=== PATIENT | female | born 1985 | race Caucasian/White ===

== ENCOUNTER 2018-08-15 06:57 | Day surgery (SDC) | payer OTHER ==
[~2018-08-15 06:57] MED LIST: Amoxicillin500 MG PO; BENZ100A PO; CEPH500 PO; GUAI600T33 PO; IBUP600 PO; LEVSOD125 PO; ONDA4ODT MM; THYROID MED; Ultram50 MG PO
== END 2018-08-15 23:08 | disposition home or self-care (01) ==
LOC: MOI US 06:57
DX: D24.2 Benign neoplasm of left breast (principal); R92.8 Other abnormal and inconclusive findings on diagnostic imaging of breast
CPT/HCPCS: 19083; 77065; 88305; A4648; G0279

== ENCOUNTER 2018-09-18 05:26 | Emergency (ER) | payer OTHER ==
[~2018-09-18] VITALS: Ht 160 cm; Wt 49.9 kg
[2018-09-18] MEDS ORDERED: LEVSOD125 PO (06:08)
[2018-09-18] MEDS ORDERED: VENL25 PO (06:08)
== END 2018-09-18 06:48 | disposition home or self-care (01) ==
LOC: ER 05:26
DX: T78.40XA Allergy, unspecified, initial encounter (principal); Z88.5 Allergy status to narcotic agent; Z79.899 Other long term (current) drug therapy
CPT/HCPCS: 99282

== ENCOUNTER → 2019-04-07 | Outpatient (CLI) | payer OTHER ==
[~2019-04-07] MED LIST changes: +VENL25 PO
== END ==
LOC: LAB 11:15 → LAB SHORT 11:15
PROVIDERS: Nurse Practitioner Family
DX: Z01.419 Encounter for gynecological examination (general) (routine) without abnormal findings (principal)
CPT/HCPCS: G0145

== ENCOUNTER → 2020-01-07 | Outpatient (CLI) | payer OTHER ==
[2020-01-08 16:09] LABS: CORNONAVIRUS (COVID19) CSH-NRL Negative (Negative)
== END ==
LOC: LAB EV 10:53 → LAB SHORT 10:53
PROVIDERS: Physician Assistant
DX: J06.9 Acute upper respiratory infection, unspecified (principal); Z20.828 Contact with and (suspected) exposure to other viral communicable diseases
CPT/HCPCS: 87081; U0003

== ENCOUNTER → 2020-03-28 | Outpatient (CLI) | payer OTHER ==
[2020-03-29 10:23] LABS: Candida species (DNA Probe) Negative (NEGATIVE); G. vaginalis (DNA Probe) Positive (NEGATIVE); T. vaginalis (DNA Probe) Negative (NEGATIVE)
== END ==
LOC: LAB SHORT 15:30 → LAB EV 15:30
PROVIDERS: Nurse Practitioner Family
DX: L29.3 Anogenital pruritus, unspecified (principal); R87.89 Other abnormal findings in specimens from female genital organs
CPT/HCPCS: 87480; 87510; 87660

== ENCOUNTER → 2020-10-28 | Outpatient (CLI) | payer OTHER ==
[2020-10-29 09:15] LABS: Candida species (DNA Probe) Negative (NEGATIVE); G. vaginalis (DNA Probe) Positive (NEGATIVE); T. vaginalis (DNA Probe) Negative (NEGATIVE)
== END | disposition home or self-care (01) ==
LOC: LAB EV 14:27 → LAB SHORT 14:27 → LAB 14:27
PROVIDERS: Nurse Practitioner Family
DX: N89.8 Other specified noninflammatory disorders of vagina (principal)
CPT/HCPCS: 87480; 87510; 87660

== ENCOUNTER → 2020-12-29 | Outpatient (CLI) | payer OTHER ==
[2020-12-30 11:01] LABS: G. vaginalis (DNA Probe) Negative (NEGATIVE); T. vaginalis (DNA Probe) Negative (NEGATIVE)
[2020-12-30 11:02] LABS: Candida species (DNA Probe) Negative (NEGATIVE)
[2021-01-01 04:10] LABS: CHLAMYDIA TRACHOMATIS, NAA Negative (Negative)
== END ==
LOC: LAB SHORT 17:37 → LAB 17:37
PROVIDERS: Nurse Practitioner Family
DX: N76.0 Acute vaginitis (principal); Z88.5 Allergy status to narcotic agent
CPT/HCPCS: 87480; 87491; 87510; 87591; 87660

== ENCOUNTER 2021-04-12 20:10 | Emergency (ER) | payer BC ==
[~2021-04-12] VITALS: Ht 160 cm; Wt 68.0 kg
[2021-04-13 00:31] LABS: Source, Urine Clean Catch
[2021-04-13 00:39] LABS: BASOPHILS ABSOLUTE AUTO 0.06 K/mm3 (0.00-0.23); BASOPHILS PERCENT AUTO 1 % (0-2); EOSINOPHILS PERCENT AUTO 6 % (0-6); Hematocrit 35.8 % (33.0-51.0); Hemoglobin 11.8 g/dL (11.5-16.0); IMMATURE GRAN ABSOLUTE AUTO 0.01 K/mm3 (0.00-0.10); IMMATURE GRAN PERCENT AUTO 0 % (0-1); LYMPHOCYTES PERCENT AUTO 35 % (21-46); MONOCYTES ABSOLUTE AUTO 0.48 K/mm3 (0.16-1.47); MONOCYTES PERCENT AUTO 9 % (4-13); Mean Corpuscular HGB 29.3 pg (26.0-34.0); Mean Corpuscular Volume 89 fL (80-100); Mean Platelet Volume 9.8 fL (9.1-12.4); NEUTROPHILS ABSOLUTE AUTO 2.64 K/mm3 (1.96-9.15); NEUTROPHILS PERCENT AUTO 49 % (41-73); Platelet Count 232 K/mm3 (150-400); RDW Coefficient Variation 12.5 % (11.7-14.2); RDW Standard Deviation 40.9 fL (35.1-46.3); Red Blood Cell Count 4.03 M/mm3 (3.80-5.20); White Blood Cell Count 5.39 K/mm3 (4.00-11.30)
[2021-04-13 01:06] LABS: Alanine Aminotransfer (ALT/SGP 23 U/L (12-78); Albumin, Blood 3.8 g/dL (3.4-5.0); Alk Phos 72 U/L (50-136); Anion Gap 5 mmol/L (6-16); Aspartate Aminotrans (AST/SGOT 18 U/L (12-37); Beta HCG, Quantitative, Serum 66 mIU/mL (0-3); Bilirubin, Total 0.2 mg/dL (0.1-1.0); Blood Urea Nitrogen 16 mg/dL (8-24); Bun/Creatinine Ratio 28.6 (12.0-20.0); CO2, Blood 29 mmol/L (21-32); Calcium, Blood 9.2 mg/dL (8.5-10.1); Chloride, Blood 105 mmol/L (98-108); Creatinine, Blood 0.56 mg/dL (0.40-1.00); Globulin, Blood 3.8 g/dL (2.2-4.0); Glomerular Filtration Rate >60 (60-); Glucose, Blood 88 mg/dL (70-99); Potassium, Blood 3.7 mmol/L (3.5-5.5); Sodium, Blood 139 mmol/L (136-145); Total Protein, Blood 7.6 g/dL (6.4-8.2)
[2021-04-13 01:24] LABS: Appearance, Urine Clear (Clear); Bilirubin, Urine Neg (Neg); Blood, Urine Neg (Neg); Color, Urine Yellow (P-Yellow); Glucose Qualitative, Urine Neg (Neg); Ketones, Urine Neg (Neg); Leukocyte Esterase, Urine Neg (Neg); Nitrite, Urine Neg (Neg); Protein, Urine Neg (Neg); Urobilinogen, Urine NORM (Normal)
== END 2021-04-13 01:56 | disposition home or self-care (01) ==
LOC: ER 20:10
PROVIDERS: Physician Assistant
DX: O99.891 Other specified diseases and conditions complicating pregnancy (principal); M54.50 Low back pain, unspecified; Z3A.01 Less than 8 weeks gestation of pregnancy; Z88.5 Allergy status to narcotic agent; E03.9 Hypothyroidism, unspecified; Z79.899 Other long term (current) drug therapy
CPT/HCPCS: 76770; 76801; 76817; 80053; 81003; 84702; 85025; 86900; 86901; 96374; 99284-25; A9270; J2550

== ENCOUNTER 2021-10-24 12:50 | Day surgery (SDC) | payer OTHER ==
[~2021-10-24] VITALS: Ht 160 cm; Wt 72.4 kg
[2021-10-24] MEDS ORDERED: ESCI10 PO (13:33)
[2021-10-24] MEDS ORDERED: BUSPIRONE HCL7.5 M1 PO (13:33)
--- NOTE | 2021-10-24 16:15 | NUR ---
10/24/21 7945 Michell Javier PT AT BEDSIDE DURING RECOVERY AND DISCHARGE INSTRUCTIONS. PT GLUTEN FREE SO PROVIDED: STRING CHEESE, APPLE SAUCE AND APPLE JUICE. ONLY PAIN IS HEADACHE SHE STATES. POSSIBLE CAFFIENE WITHDRAWL SYMPT D/T NOT HAVING HER COFFEE TODAY. MELISSA AMIN TEA PROVIDED FOR HER. RAHRN
--- NOTE | 2021-10-30 12:04 | NUR ---
10/30/21 1204 Brent Workman SURGEON BROUGHT AND USED HER OWN ULTRASOUND. BRENT WORKMAN RN
== END 2021-10-24 16:30 | disposition home or self-care (01) ==
LOC: ORSCSDS 12:50
PROVIDERS: Obstetrics & Gynecology
PROC: 10D17ZZ Extraction of Products of Conception, Retained, Via Natural or Artificial Opening (ICD-10-PCS; principal; 2021-10-24 14:30)
DX: O02.89 Other abnormal products of conception (principal); J45.909 Unspecified asthma, uncomplicated; E03.9 Hypothyroidism, unspecified; F41.8 Other specified anxiety disorders; Z79.899 Other long term (current) drug therapy
CPT/HCPCS: 88305; J1100; J1885; J2210; J2250; J2405; J2704; J3010; J7060; J7120

== ENCOUNTER → 2022-03-06 | Outpatient (CLI) | payer OTHER ==
[~2022-03-06] MED LIST changes: +BUSPIRONE HCL7.5 M1 PO; +ESCI10 PO
== END | disposition home or self-care (01) ==
LOC: LAB SHORT 10:04 → LAB 10:04
DX: Z20.9 Contact with and (suspected) exposure to unspecified communicable disease (principal)
CPT/HCPCS: 87807

== ENCOUNTER 2022-04-21 10:04 | Emergency (ER) | payer OTHER ==
[~2022-04-21] VITALS: Ht 162.6 cm; Wt 63.5 kg
[2022-04-21 11:29] LABS: BASOPHILS ABSOLUTE AUTO 0.06 K/mm3 (0.00-0.23); BASOPHILS PERCENT AUTO 1 % (0-2); EOSINOPHILS ABSOLUTE AUTO 0.16 K/mm3 (0.00-0.68); EOSINOPHILS PERCENT AUTO 4 % (0-6); Hematocrit 40.5 % (33.0-51.0); Hemoglobin 14.2 g/dL (11.5-16.0); IMMATURE GRAN PERCENT AUTO 0 % (0-1); LYMPHOCYTES ABSOLUTE AUTO 1.47 K/mm3 (0.84-5.20); LYMPHOCYTES PERCENT AUTO 33 % (21-46); MONOCYTES PERCENT AUTO 9 % (4-13); Mean Corpuscular HGB 32.4 pg (26.0-34.0); Mean Corpuscular HGB Conc 35.1 g/dL (31.5-36.5); Mean Corpuscular Volume 93 fL (80-100); Mean Platelet Volume 9.3 fL (9.1-12.4); NEUTROPHILS ABSOLUTE AUTO 2.44 K/mm3 (1.96-9.15); NEUTROPHILS PERCENT AUTO 54 % (41-73); Platelet Count 230 K/mm3 (150-400); RDW Coefficient Variation 11.4 % (11.7-14.2); RDW Standard Deviation 38.8 fL (35.1-46.3); Red Blood Cell Count 4.38 M/mm3 (3.80-5.20); White Blood Cell Count 4.53 K/mm3 (4.00-11.30)
[2022-04-21 12:19] LABS: Bun/Creatinine Ratio 23.4 (12.0-20.0); Calcium, Blood 9.5 mg/dL (8.5-10.1); Creatinine, Blood 0.56 mg/dL (0.40-1.00); Potassium, Blood 3.7 mmol/L (3.5-5.5); Thyroid Stimulating Hormone 1.26 uIU/mL (0.360-4.800)
== END 2022-04-21 12:44 | disposition home or self-care (01) ==
LOC: ER 10:04
PROVIDERS: Emergency Medicine
DX: R20.2 Paresthesia of skin (principal); E03.9 Hypothyroidism, unspecified; Z88.5 Allergy status to narcotic agent; Z79.899 Other long term (current) drug therapy
CPT/HCPCS: 36415; 72040; 80048; 84443; 85025

== ENCOUNTER 2022-04-30 13:27 | Day surgery (SDC) | payer OTHER ==
[~2022-04-30] VITALS: Ht 160 cm; Wt 80.2 kg
--- NOTE | 2022-04-30 16:43 | NUR ---
04/30/22 1643 Denise Villeda ROPIVACAINE 0.5% 30 MLS MIXED W/ EPI 0.15 ML (1 MG/ ML) TO MAKE ROPIVACAINE 0.5% 1:200,000 FOR INJECTION AT [facility] BY DR GARCIA.
--- NOTE | 2022-04-30 18:03 | NUR ---
04/30/22 1803 Jaimie Lawrence PATIENT IN BED WITH AT BEDSIDE. ZOFRAN 4MG IV X1 GIVEN BY RN RDS FOR NAUSEA AT 1754. FENTANYL 25MCG IV X1 GIVEN AT 1756 FOR C/O 9/10 PAIN IN R FOOT.
== END 2022-04-30 18:30 | disposition home or self-care (01) ==
LOC: ORSCSDS 13:27
PROVIDERS: Podiatrist Foot & Ankle Surgery
PROC: 0SBF4ZZ Excision of Right Ankle Joint, Percutaneous Endoscopic Approach (ICD-10-PCS; principal; 2022-04-30 15:15)
PROC: 0MQQ0ZZ Repair Right Ankle Bursa and Ligament, Open Approach (ICD-10-PCS; principal; 2022-04-30 15:15)
DX: M25.371 Other instability, right ankle (principal); M24.871 Other specific joint derangements of right ankle, not elsewhere classified; S93.401A Sprain of unspecified ligament of right ankle, initial encounter; E03.9 Hypothyroidism, unspecified; F41.8 Other specified anxiety disorders; Z79.899 Other long term (current) drug therapy
CPT/HCPCS: A9270; C1713; J0171; J0690; J1100; J2250; J2405; J2704; J2795; J3010; J7120

== ENCOUNTER → 2022-11-06 | Outpatient (CLI) | payer OTHER ==
[2022-11-06 17:56] LABS: BASOPHILS ABSOLUTE AUTO 0.02 K/mm3 (0.00-0.23); BASOPHILS PERCENT AUTO 0 % (0-2); EOSINOPHILS ABSOLUTE AUTO 0.01 K/mm3 (0.00-0.68); EOSINOPHILS PERCENT AUTO 0 % (0-6); Hematocrit 39.1 % (33.0-51.0); Hemoglobin 13.6 g/dL (11.5-16.0); IMMATURE GRAN ABSOLUTE AUTO 0.01 K/mm3 (0.00-0.10); IMMATURE GRAN PERCENT AUTO 0 % (0-1); LYMPHOCYTES PERCENT AUTO 11 % (21-46); MONOCYTES ABSOLUTE AUTO 0.24 K/mm3 (0.16-1.47); MONOCYTES PERCENT AUTO 5 % (4-13); Mean Corpuscular HGB 31.8 pg (26.0-34.0); Mean Corpuscular HGB Conc 34.8 g/dL (31.5-36.5); Mean Corpuscular Volume 91 fL (80-100); Mean Platelet Volume 10.6 fL (9.1-12.4); NEUTROPHILS ABSOLUTE AUTO 4.37 K/mm3 (1.96-9.15); NEUTROPHILS PERCENT AUTO 83 % (41-73); Platelet Count 189 K/mm3 (150-400); RDW Standard Deviation 40.2 fL (35.1-46.3); Red Blood Cell Count 4.28 M/mm3 (3.80-5.20); White Blood Cell Count 5.25 K/mm3 (4.00-11.30)
[2022-11-06 21:35] LABS: Albumin, Blood 3.7 g/dL (3.4-5.0); Albumin/Globulin Ratio 1.1 (0.8-1.8); Bilirubin, Total 0.5 mg/dL (0.1-1.0); Bun/Creatinine Ratio 27.3 (12.0-20.0); Calcium, Blood 8.1 mg/dL (8.5-10.1); Creatinine, Blood 0.59 mg/dL (0.40-1.00); Globulin, Blood 3.4 g/dL (2.2-4.0); Potassium, Blood 3.3 mmol/L (3.5-5.5); Total Protein, Blood 7.1 g/dL (6.4-8.2)
== END ==
LOC: LAB SHORT 16:00 → LAB 16:00
PROVIDERS: Family Medicine
DX: K52.9 Noninfective gastroenteritis and colitis, unspecified (principal)
CPT/HCPCS: 80053; 85025

== ENCOUNTER 2023-07-09 18:03 | Emergency (ER) | payer OTHER ==
[~2023-07-09] VITALS: Ht 160 cm; Wt 90.7 kg
[2023-07-09 18:12] VITALS: BP 136/92
[2023-07-09 18:57] LABS: BASOPHILS ABSOLUTE AUTO 0.02 K/mm3 (0.00-0.23); BASOPHILS PERCENT AUTO 0 % (0-2); EOSINOPHILS ABSOLUTE AUTO 0.11 K/mm3 (0.00-0.68); EOSINOPHILS PERCENT AUTO 2 % (0-6); Hematocrit 34.3 % (33.0-51.0); Hemoglobin 12.1 g/dL (11.5-16.0); IMMATURE GRAN ABSOLUTE AUTO 0.01 K/mm3 (0.00-0.10); IMMATURE GRAN PERCENT AUTO 0 % (0-1); LYMPHOCYTES ABSOLUTE AUTO 1.84 K/mm3 (0.84-5.20); LYMPHOCYTES PERCENT AUTO 25 % (21-46); MONOCYTES ABSOLUTE AUTO 0.47 K/mm3 (0.16-1.47); MONOCYTES PERCENT AUTO 6 % (4-13); Mean Corpuscular HGB 31.4 pg (26.0-34.0); Mean Corpuscular HGB Conc 35.3 g/dL (31.5-36.5); Mean Corpuscular Volume 89 fL (80-100); Mean Platelet Volume 9.7 fL (9.1-12.4); NEUTROPHILS ABSOLUTE AUTO 4.95 K/mm3 (1.96-9.15); NEUTROPHILS PERCENT AUTO 67 % (41-73); Platelet Count 212 K/mm3 (150-400); RDW Coefficient Variation 12.5 % (11.7-14.2); RDW Standard Deviation 40.8 fL (35.1-46.3); Red Blood Cell Count 3.85 M/mm3 (3.80-5.20)
[2023-07-09 19:08] LABS: Albumin, Blood 3.3 g/dL (3.4-5.0); Albumin/Globulin Ratio 0.8 (0.8-1.8); Bilirubin, Total 0.1 mg/dL (0.1-1.0); Creatinine, Blood 0.41 mg/dL (0.40-1.00); Globulin, Blood 3.9 g/dL (2.2-4.0); Potassium, Blood 3.5 mmol/L (3.5-5.5); Total Protein, Blood 7.2 g/dL (6.4-8.2)
== END 2023-07-09 19:43 | disposition left against medical advice (07) ==
LOC: ER 18:03
PROVIDERS: Nurse Practitioner
DX: O26.899 Other specified pregnancy related conditions, unspecified trimester (principal); R07.9 Chest pain, unspecified; Z3A.00 Weeks of gestation of pregnancy not specified; Z53.29 Procedure and treatment not carried out because of patient's decision for other reasons
CPT/HCPCS: 80053; 84484; 85025; 93005; 93010; 99282-25

== ENCOUNTER → 2023-07-10 | Outpatient (CLI) | payer OTHER ==
[2023-07-10 19:44] LABS: Free Thyroxine 1.19 ng/dL (0.70-1.60)
[2023-07-10 19:48] LABS: Albumin, Blood 3.5 g/dL (3.4-5.0); Albumin/Globulin Ratio 0.8 (0.8-1.8); Bilirubin, Total 0.2 mg/dL (0.1-1.0); Calcium, Blood 9.1 mg/dL (8.5-10.1); Creatinine, Blood 0.36 mg/dL (0.40-1.00); Globulin, Blood 4.2 g/dL (2.2-4.0); Potassium, Blood 3.9 mmol/L (3.5-5.5); Thyroid Stimulating Hormone 2.85 uIU/mL (0.360-4.800); Total Protein, Blood 7.7 g/dL (6.4-8.2)
== END | disposition home or self-care (01) ==
LOC: LAB EV 17:00 → LAB SHORT 17:00
PROVIDERS: Family Medicine
DX: Z09 Encounter for follow-up examination after completed treatment for conditions other than malignant neoplasm (principal); Z86.59 Personal history of other mental and behavioral disorders
CPT/HCPCS: 80053; 84439; 84443

== ENCOUNTER → 2023-10-29 | Outpatient (CLI) | payer OTHER ==
[2023-10-29 16:52] LABS: Creatinine, Urine Random 5.56 mg/dL (27.00-270.00)
[2023-10-29 16:59] LABS: Protein, Urine Random <5.0 mg/dL (0.0-11.9); Protein/Creat Ratio, Ur Random Unable to Calculate
== END ==
LOC: LAB 13:35 → LAB SHORT 13:35
PROVIDERS: Obstetrics & Gynecology
DX: R03.0 Elevated blood-pressure reading, without diagnosis of hypertension (principal)
CPT/HCPCS: 82570; 84156

== ENCOUNTER → 2023-12-12 | Outpatient (CLI) | payer OTHER | LOC: LAB SHORT 13:02 → LAB 13:02 | DX: O09.90 Supervision of high risk pregnancy, unspecified, unspecified trimester (principal) | CPT/HCPCS: 87081; 87150 ==

== ENCOUNTER 2023-12-24 13:01 | Inpatient (IN) | payer OTHER ==
[~2023-12-24] VITALS: Ht 160 cm; Wt 108.0 kg
[2023-12-24] VITALS (19 sets, daily range): BP systolic 99–137; BP diastolic 58–88
[2023-12-24] MEDS ORDERED: Lactated Ringer's 1,000 ML IV SCH (13:35)
[2023-12-24] MEDS ORDERED: Metoclopramide HCl 5MG / ML 2ML Vial IV ONE (13:35)
[2023-12-24] MEDS ORDERED: CeFAZolin Sodium 2,000 MG in NS 100 ML IV SCH (13:35)
[2023-12-24] MEDS ORDERED: Citric Acid/Sodium Citrate 30 ML BTL PO SCH (13:35)
[2023-12-24 14:31] LABS: BASOPHILS ABSOLUTE AUTO 0.02 K/mm3 (0.00-0.23); BASOPHILS PERCENT AUTO 0 % (0-2); EOSINOPHILS ABSOLUTE AUTO 0.04 K/mm3 (0.00-0.68); EOSINOPHILS PERCENT AUTO 0 % (0-6); Hemoglobin 11.8 g/dL (11.5-16.0); IMMATURE GRAN ABSOLUTE AUTO 0.06 K/mm3 (0.00-0.10); IMMATURE GRAN PERCENT AUTO 1 % (0-1); LYMPHOCYTES ABSOLUTE AUTO 1.08 K/mm3 (0.84-5.20); LYMPHOCYTES PERCENT AUTO 11 % (21-46); MONOCYTES ABSOLUTE AUTO 0.55 K/mm3 (0.16-1.47); MONOCYTES PERCENT AUTO 5 % (4-13); Mean Corpuscular HGB 32.7 pg (26.0-34.0); Mean Corpuscular HGB Conc 34.7 g/dL (31.5-36.5); Mean Corpuscular Volume 94 fL (80-100); Mean Platelet Volume 9.9 fL (9.1-12.4); NEUTROPHILS ABSOLUTE AUTO 8.35 K/mm3 (1.96-9.15); NEUTROPHILS PERCENT AUTO 83 % (41-73); Platelet Count 196 K/mm3 (150-400); RDW Coefficient Variation 13.2 % (11.7-14.2); RDW Standard Deviation 45.4 fL (35.1-46.3); Red Blood Cell Count 3.61 M/mm3 (3.80-5.20)
[2023-12-24] MEDS ORDERED: Morphine Sulfate/PF 1 MG/ML 10MLVIAL ONE (14:53)
[2023-12-24] MEDS ORDERED: Phenylephrine HCl 100 MCG/ML-NS 10MLSYR (1MG/10ML) ONE (15:20)
[2023-12-24] MEDS ORDERED: Oxytocin 10 Unit / ML Vial ONE (15:27)
[2023-12-24] MEDS ORDERED: Tranexamic Acid 100 ML IV ONE (15:42)
[2023-12-24] MEDS ORDERED: FentaNYL Citrate 50 MCG/ML 2 ML Injection ONE ×2 (15:44→16:43)
[2023-12-24] MEDS ORDERED: propofoL 20 ML IV ONE ×2 (15:48→16:12)
[2023-12-24 16:15] LABS: PCO2 Cord - Arterial 55.8 mmHg (40-50); PO2 Cord - Arterial 17.1 mmHg (16-20); pH Cord - Arterial 7.26 (7.28-7.35)
[2023-12-24 16:16] LABS: PCO2 Cord - Venous 42.7 mmHg (40-50); pH Umbilical Cord - Venous 7.38 (7.26-7.35)
[2023-12-24 16:17] LABS: PO2 Cord - Venous 27.2 mmHg (28-32)
[2023-12-24] MEDS ORDERED: Ketorolac Tromethamine 30mg Vial ONE (16:25)
[2023-12-24] MEDS ORDERED: Simethicone 80 MG Chew PO PRN (17:10)
[2023-12-24] MEDS ORDERED: Carboprost Tromethamine 250 MCG/ML 1ML Amp IM PRN (17:10)
[2023-12-24] MEDS ORDERED: Lanolin Cream TOP PRN (17:10)
[2023-12-24] MEDS ORDERED: OxyCODONE HCL 5 MG TAB PO PRN ×3 (17:10→21:00)
[2023-12-24] MEDS ORDERED: Magnesium Hydroxide Conc 10 ML UDC PO PRN (17:10)
[2023-12-24] MEDS ORDERED: Ondansetron HCl 2 MG / ML 2ML Vial IV PRN (17:10)
[2023-12-24] MEDS ORDERED: HYDROmorphone HCl/Pf 1MG SYR IV PRN (17:15)
[2023-12-24] MEDS ORDERED: Promethazine HCl 25 MG Tab PO PRN (17:15)
[2023-12-24] MEDS ORDERED: Rho(D) Immune Globulin 300 MCG / SYR IM ONE (17:15)
[2023-12-24] MEDS ORDERED: DiphenhydrAMINE HCL 25 MG Cap PO PRN (17:15)
[2023-12-24] MEDS ORDERED: Oxytocin 10 Unit / ML Vial IM PRN (17:20)
[2023-12-24] MEDS ORDERED: OXYTOCIN IV SCH (17:20)
[2023-12-24] MEDS ORDERED: RINGER S LACTATE IV SCH (17:20)
[2023-12-24] MEDS ORDERED: ADALAT CC30 M1 PO (17:21)
[2023-12-24] MEDS ORDERED: FAMO20 PO (17:22)
[2023-12-24] MEDS ORDERED: FentaNYL Citrate 50 MCG/ML 2 ML Injection IV ONE (17:35)
[2023-12-24] MEDS ORDERED: Ketorolac Tromethamine 30mg Vial IV SCH (18:00)
[2023-12-24] MEDS ORDERED: Acetaminophen 500 MG Tab PO SCH (18:00)
[2023-12-24] MEDS ORDERED: Tranexamic Acid 100 ML IV PRN (18:05)
[2023-12-24] MEDS ORDERED: NIFEdipine 30 MG TabCR PO SCH (21:00)
[2023-12-24] MEDS ORDERED: Famotidine 20 MG Tab PO SCH (21:00)
[2023-12-25] MEDS ORDERED: Ibuprofen 400 MG Tab PO SCH
[2023-12-25 03:34] VITALS: BP 116/65
[2023-12-25] MEDS ORDERED: Levothyroxine Sodium 0.137 MG Tab PO SCH (06:00)
--- NOTE | 2023-12-25 06:41 | NUR ---
ATTEMPTS TO VOID AT 0440 AND 0620. ATTEMPTED TO VOID IN SHOWER AND SITTING ON TOILET. USED PEPPERMINT ESSENTIAL OIL IN TOILET BOWL, TURNED SINK WATER ON, AND USED WARM WATER ON PERINEUM. PATIENT STATES SHE FEELS LIKE SHE NEEDS TO URINATE BUT CAN NOT START A STREAM OF URINE. BLADDER SCAN AT THIS TIME IS 420ML.
[2023-12-25 07:20] LABS: BASOPHILS ABSOLUTE AUTO 0.03 K/mm3 (0.00-0.23); BASOPHILS PERCENT AUTO 0 % (0-2); EOSINOPHILS ABSOLUTE AUTO 0.05 K/mm3 (0.00-0.68); EOSINOPHILS PERCENT AUTO 0 % (0-6); Hematocrit 28.2 % (33.0-51.0); Hemoglobin 9.5 g/dL (11.5-16.0); IMMATURE GRAN ABSOLUTE AUTO 0.06 K/mm3 (0.00-0.10); IMMATURE GRAN PERCENT AUTO 1 % (0-1); LYMPHOCYTES ABSOLUTE AUTO 0.99 K/mm3 (0.84-5.20); LYMPHOCYTES PERCENT AUTO 9 % (21-46); MONOCYTES ABSOLUTE AUTO 0.71 K/mm3 (0.16-1.47); MONOCYTES PERCENT AUTO 6 % (4-13); Mean Corpuscular HGB 31.9 pg (26.0-34.0); Mean Corpuscular HGB Conc 33.7 g/dL (31.5-36.5); Mean Corpuscular Volume 95 fL (80-100); Mean Platelet Volume 9.5 fL (9.1-12.4); NEUTROPHILS PERCENT AUTO 84 % (41-73); Platelet Count 162 K/mm3 (150-400); RDW Coefficient Variation 13.6 % (11.7-14.2); RDW Standard Deviation 46.6 fL (35.1-46.3); Red Blood Cell Count 2.98 M/mm3 (3.80-5.20); White Blood Cell Count 11.14 K/mm3 (4.00-11.30)
[2023-12-25 07:31] VITALS: BP 122/78
[2023-12-25 07:44] LABS: Source, Urine Foley catheter
[2023-12-25 07:48] LABS: Bilirubin, Urine Neg (Neg); Blood, Urine Neg (Neg); Glucose Qualitative, Urine Neg (Neg); Ketones, Urine Neg (Neg); Leukocyte Esterase, Urine Neg (Neg); Nitrite, Urine Neg (Neg); Protein, Urine Neg (Neg); Urobilinogen, Urine NORM (Normal)
[2023-12-25 07:49] LABS: Appearance, Urine Clear (Clear); Color, Urine Yellow (P-Yellow)
[2023-12-25 08:21] LABS: Albumin, Blood 2.2 g/dL (3.4-5.0); Albumin/Globulin Ratio 0.6 (0.8-1.8); Bilirubin, Total 0.4 mg/dL (0.1-1.0); Bun/Creatinine Ratio 22.9 (12.0-20.0); Calcium, Blood 8.9 mg/dL (8.5-10.1); Creatinine, Blood 0.44 mg/dL (0.40-1.00); Globulin, Blood 3.6 g/dL (2.2-4.0); Potassium, Blood 4.1 mmol/L (3.5-5.5); Total Protein, Blood 5.8 g/dL (6.4-8.2)
[2023-12-25] MEDS ORDERED: Prenatal Vit/FE Fumarate/FA 1 Tab PO SCH (09:00)
[2023-12-25] MEDS ORDERED: Polyethylene Glycol 3350 17 gm PO SCH (09:00)
[2023-12-25] MEDS ORDERED: NIFEdipine 30 MG TabCR PO SCH (09:00)
--- NOTE | 2023-12-25 10:28 | NUR ---
TALKED TO DR DAVIS, TO TRY AND REMOVE PURDY CATH AT 1600 THIS EVENING.
[2023-12-25] MEDS ORDERED: IBUP800 PO (11:24)
[2023-12-25] MEDS ORDERED: ACET500 PO (11:25)
[2023-12-25 11:31] VITALS: BP 136/75
[2023-12-25 16:12] VITALS: BP 122/72
[2023-12-25 19:09] VITALS: BP 127/76
[2023-12-25 23:09] VITALS: BP 115/69
[2023-12-26 03:16] VITALS: BP 120/65
[2023-12-26 07:54] VITALS: BP 121/67
[2023-12-26 11:13] VITALS: BP 137/86
--- NOTE | 2023-12-26 16:27 | NUR ---
REPT TO Gretel RICHARDS RN
[2023-12-26 17:22] VITALS: BP 133/67
--- NOTE | 2023-12-26 18:02 | NUR ---
ASSUMED CARE OF PT FROM [facility] COMBS AT 1600
[2023-12-26 19:23] VITALS: BP 136/79
[2023-12-27 01:25] VITALS: BP 138/86
[2023-12-27 02:56] VITALS: BP 138/86
[2023-12-27 08:27] VITALS: BP 131/70
[2023-12-27 11:19] VITALS: BP 143/82
[2023-12-27 16:04] VITALS: BP 134/76
== END 2023-12-27 18:15 | disposition home or self-care (01) | DRG 785 ==
LOC: BC 13:01
PROVIDERS: ADMIT Obstetrics & Gynecology
PROC: 10907ZC Drainage of Amniotic Fluid, Therapeutic from Products of Conception, Via Natural or Artificial Opening (ICD-10-PCS; 2023-12-24)
PROC: 10D00Z1 Extraction of Products of Conception, Low, Open Approach (ICD-10-PCS; principal; 2023-12-24 15:00)
PROC: 0UB70ZZ Excision of Bilateral Fallopian Tubes, Open Approach (ICD-10-PCS; 2023-12-24 15:00)
DX: O14.94 Unspecified pre-eclampsia, complicating childbirth (principal); Z37.0 Single live birth; Z3A.37 37 weeks gestation of pregnancy; O32.8XX0 Maternal care for other malpresentation of fetus, not applicable or unspecified; O24.429 Gestational diabetes mellitus in childbirth, unspecified control; O34.211 Maternal care for low transverse scar from previous cesarean delivery; O99.02 Anemia complicating childbirth; O99.284 Endocrine, nutritional and metabolic diseases complicating childbirth; E03.9 Hypothyroidism, unspecified; O99.344 Other mental disorders complicating childbirth; F41.8 Other specified anxiety disorders
CPT/HCPCS: 36415; 51702; 80053; 81003; 82803; 82947; 85025; 86850; 86870; 86900; 86901; 88305; A9270; J0690; J1885; J2274; J2371; J2590; J2704; J2765; J3010

== ENCOUNTER → 2023-12-31 | Outpatient (CLI) | payer OTHER ==
[~2023-12-31] MED LIST changes: +ACET500 PO; +ADALAT CC30 M1 PO; +FAMO20 PO; +IBUP800 PO
[2023-12-31 12:11] LABS: Source, Urine Clean Catch
[2023-12-31 13:21] LABS: Appearance, Urine Hazy (Clear); Bilirubin, Urine Neg (Neg); Blood, Urine 5+ (Neg); Color, Urine Yellow (P-Yellow); Glucose Qualitative, Urine Neg (Neg); Ketones, Urine Neg (Neg); Leukocyte Esterase, Urine 1+ (Neg); Nitrite, Urine Neg (Neg); Protein, Urine Neg (Neg); Specific Gravity, Urine 1.005 (1.003-1.022); Urobilinogen, Urine NORM (Normal)
[2023-12-31 13:51] LABS: Bacteria Many /hpf; Red Blood Cells, Urine 0-2 /hpf (0-2); Squamous Epithelial Cells Many /hpf (Few); Transitional Epithelial Cells Rare /hpf (0-Rare)
[2023-12-31 16:25] LABS: Bacterial Vaginosis PCR Positive (NEGATIVE); Candida Group, PCR NOT DETECTED (NOT DETECT); Candida glabrata-krusei, PCR NOT DETECTED (NOT DETECT)
== END | disposition home or self-care (01) ==
LOC: LAB SHORT 12:05 → LAB 12:05
PROVIDERS: Advanced Practice Midwife
DX: N76.0 Acute vaginitis (principal); R30.0 Dysuria
CPT/HCPCS: 81001; 87086; 87481; 87661; 87801

== ENCOUNTER → 2024-03-04 | Outpatient (CLI) | payer OTHER ==
[~2024-03-04] MED LIST changes: +CARAFATE1 GM/10 M1 PO; +OMEP20ER PO
[2024-03-04 16:16] LABS: BASOPHILS ABSOLUTE AUTO 0.04 K/mm3 (0.00-0.23); BASOPHILS PERCENT AUTO 1 % (0-2); EOSINOPHILS ABSOLUTE AUTO 0.64 K/mm3 (0.00-0.68); EOSINOPHILS PERCENT AUTO 11 % (0-6); Hematocrit 37.9 % (33.0-51.0); Hemoglobin 12.9 g/dL (11.5-16.0); IMMATURE GRAN ABSOLUTE AUTO 0.01 K/mm3 (0.00-0.10); IMMATURE GRAN PERCENT AUTO 0 % (0-1); LYMPHOCYTES ABSOLUTE AUTO 2.11 K/mm3 (0.84-5.20); LYMPHOCYTES PERCENT AUTO 36 % (21-46); MONOCYTES ABSOLUTE AUTO 0.43 K/mm3 (0.16-1.47); MONOCYTES PERCENT AUTO 7 % (4-13); Mean Corpuscular HGB 29.9 pg (26.0-34.0); Mean Corpuscular Volume 88 fL (80-100); NEUTROPHILS ABSOLUTE AUTO 2.66 K/mm3 (1.96-9.15); NEUTROPHILS PERCENT AUTO 45 % (41-73); Platelet Count 191 K/mm3 (150-400); RDW Coefficient Variation 12.4 % (11.7-14.2); RDW Standard Deviation 39.2 fL (35.1-46.3); Red Blood Cell Count 4.32 M/mm3 (3.80-5.20); White Blood Cell Count 5.89 K/mm3 (4.00-11.30)
== END ==
LOC: LAB 16:13 → LAB SHORT 16:13
PROVIDERS: Family Medicine
DX: K92.1 Melena (principal)
CPT/HCPCS: 85025

== ENCOUNTER 2024-03-05 15:10 | Emergency (ER) | payer OTHER ==
[~2024-03-05] VITALS: Ht 160 cm; Wt 92.1 kg
[~2024-03-05 15:10] MED LIST changes: -CARAFATE1 GM/10 M1 PO; -OMEP20ER PO
[2024-03-05 15:51] LABS: BASOPHILS ABSOLUTE AUTO 0.05 K/mm3 (0.00-0.23); BASOPHILS PERCENT AUTO 1 % (0-2); EOSINOPHILS ABSOLUTE AUTO 0.65 K/mm3 (0.00-0.68); EOSINOPHILS PERCENT AUTO 10 % (0-6); Hematocrit 39.3 % (33.0-51.0); Hemoglobin 13.4 g/dL (11.5-16.0); IMMATURE GRAN ABSOLUTE AUTO 0.01 K/mm3 (0.00-0.10); IMMATURE GRAN PERCENT AUTO 0 % (0-1); LYMPHOCYTES ABSOLUTE AUTO 2.22 K/mm3 (0.84-5.20); LYMPHOCYTES PERCENT AUTO 35 % (21-46); MONOCYTES ABSOLUTE AUTO 0.42 K/mm3 (0.16-1.47); MONOCYTES PERCENT AUTO 7 % (4-13); Mean Corpuscular HGB 30.2 pg (26.0-34.0); Mean Corpuscular HGB Conc 34.1 g/dL (31.5-36.5); Mean Corpuscular Volume 89 fL (80-100); Mean Platelet Volume 10.2 fL (9.1-12.4); NEUTROPHILS ABSOLUTE AUTO 3.02 K/mm3 (1.96-9.15); NEUTROPHILS PERCENT AUTO 47 % (41-73); Platelet Count 226 K/mm3 (150-400); RDW Coefficient Variation 12.3 % (11.7-14.2); RDW Standard Deviation 40.3 fL (35.1-46.3); Red Blood Cell Count 4.43 M/mm3 (3.80-5.20); White Blood Cell Count 6.37 K/mm3 (4.00-11.30)
[2024-03-05 16:14] LABS: Albumin, Blood 3.8 g/dL (3.4-5.0); Bilirubin, Total 0.3 mg/dL (0.1-1.0); Bun/Creatinine Ratio 31.1 (12.0-20.0); Calcium, Blood 9.3 mg/dL (8.5-10.1); Creatinine, Blood 0.55 mg/dL (0.40-1.00); Globulin, Blood 3.8 g/dL (2.2-4.0); Potassium, Blood 3.6 mmol/L (3.5-5.5); Total Protein, Blood 7.6 g/dL (6.4-8.2)
[2024-03-05] MEDS ORDERED: Pantoprazole Sodium 40 MG Injection IV ONE (17:40)
[2024-03-05] MEDS ORDERED: Sucralfate 1000MG / 10ML UD BTL PO ONE (17:40)
[2024-03-05 17:48] LABS: Source, Urine Clean Catch
[2024-03-05 17:59] LABS: Appearance, Urine Clear (Clear); Bilirubin, Urine Neg (Neg); Blood, Urine Neg (Neg); Glucose Qualitative, Urine Neg (Neg); Ketones, Urine Neg (Neg); Leukocyte Esterase, Urine Neg (Neg); Nitrite, Urine Neg (Neg); Protein, Urine Neg (Neg); Urobilinogen, Urine NORM (Normal)
[2024-03-05 18:00] LABS: Color, Urine Pale Yellow (P-Yellow)
[2024-03-05] MEDS ORDERED: CARAFATE1 GM/10 M1 PO (19:49)
[2024-03-05] MEDS ORDERED: OMEP20ER PO (19:49)
[2024-03-05 20:00] VITALS: BP 136/92
== END 2024-03-05 20:18 | disposition home or self-care (01) ==
LOC: ER 15:10
PROVIDERS: Student in an Organized Health Care Education/Training Program
DX: K92.1 Melena (principal); R10.11 Right upper quadrant pain; E03.9 Hypothyroidism, unspecified; Z79.899 Other long term (current) drug therapy; Z88.5 Allergy status to narcotic agent
CPT/HCPCS: 76705; 80053; 81003; 82272; 83690; 84703; 85025; 86850; 86900; 86901; 96374; 99285-25; A9270; J2470

== ENCOUNTER 2024-05-27 07:35 | Day surgery (SDC) | payer OTHER ==
[~2024-05-27] VITALS: Ht 160 cm; Wt 85.5 kg
[~2024-05-27 07:35] MED LIST changes: +CARAFATE1 GM/10 M1 PO; +Lactated Ringer's 1,000 ML IV ONE; +OMEP20ER PO; +propofoL 50 ML IV ONE
[2024-05-27] MEDS ORDERED: LABE100 (07:48)
[2024-05-27] MEDS ORDERED: ESCI20 (07:48)
[2024-05-27] MEDS ORDERED: LEVSOD137 (07:49)
[2024-05-27] MEDS ORDERED: Lactated Ringer's 1,000 ML IV ONE (08:13)
[2024-05-27 10:29] VITALS: BP 102/85
== END 2024-05-27 10:15 | disposition home or self-care (01) ==
LOC: ORSCSDS 07:35
PROVIDERS: Specialist
PROC: 0DB68ZX Excision of Stomach, Via Natural or Artificial Opening Endoscopic, Diagnostic (ICD-10-PCS; principal; 2024-05-27 09:00)
PROC: 0DB98ZX Excision of Duodenum, Via Natural or Artificial Opening Endoscopic, Diagnostic (ICD-10-PCS; principal; 2024-05-27 09:00)
PROC: 0DB58ZX Excision of Esophagus, Via Natural or Artificial Opening Endoscopic, Diagnostic (ICD-10-PCS; principal; 2024-05-27 09:00)
PROC: 0DJD8ZZ Inspection of Lower Intestinal Tract, Via Natural or Artificial Opening Endoscopic (ICD-10-PCS; principal; 2024-05-27 09:00)
DX: K92.1 Melena (principal); R10.9 Unspecified abdominal pain; R19.4 Change in bowel habit; K21.9 Gastro-esophageal reflux disease without esophagitis; R12 Heartburn; R11.0 Nausea; Z83.719 Family history of colon polyps, unspecified; K64.8 Other hemorrhoids; K64.4 Residual hemorrhoidal skin tags; Z79.899 Other long term (current) drug therapy
CPT/HCPCS: 88305; 88342; J2704; J7120

== ENCOUNTER → 2024-11-05 | Outpatient (CLI) | payer OTHER ==
[~2024-11-05] MED LIST changes: +ESCI20; +LABE100; +LEVSOD137; -Lactated Ringer's 1,000 ML IV ONE; -propofoL 50 ML IV ONE
[2024-11-06 09:59] LABS: Bacterial Vaginosis PCR Negative (NEGATIVE); Candida Group, PCR NOT DETECTED (NOT DETECT); Candida glabrata-krusei, PCR NOT DETECTED (NOT DETECT)
== END ==
LOC: LAB SHORT 18:28 → LAB 18:28
PROVIDERS: Family Medicine
DX: N89.8 Other specified noninflammatory disorders of vagina (principal)
CPT/HCPCS: 81515

== ENCOUNTER → 2024-12-21 | Outpatient (CLI) | payer OTHER | LOC: LAB SHORT 16:12 → LAB 16:12 | DX: Z20.818 Contact with and (suspected) exposure to other bacterial communicable diseases (principal) | CPT/HCPCS: 87081 ==